=== PATIENT | female | born 1940 | race Caucasian/White ===

== ENCOUNTER 2016-09-30 06:54 | Outpatient (CLI) ==
--- NOTE | 2016-09-30 12:43 | MRI ---
EXAM: [facility] MR angiogram without contrast. HISTORY: Syncope and collapse. COMPARISON: Brain MRI 09/30/2016. TECHNIQUE: 3-D [id number] MR angiography was acquired through the [facility] without cont rast. FINDINGS: The right internal carotid artery has no flow-limiting stenoses from the distal cervical segment to the intracranial bifurcation. There is a partially visualized right posterior communicat ing artery which has a probable mild to moderate stenosis at its junction with the right posterior c erebral artery. The right anterior and middle cerebral arteries are unremarkable. There is a parti ally visualized tiny anterior communicating artery that may have a moderate stenosis at its junction with the right anterior cerebral artery. This may be accentuated by small size and slow flow. The left internal carotid artery has no flow-limiting stenoses from the distal cervical segment to t he intracranial bifurcation. There is a dominant left posterior communicating artery. The left mid dle cerebral artery M1 segment is normal to the bifurcation and there is a moderate stenosis at the origin and proximal 2 mm of the posterior left M2 branch. The left anterior M2 branch is normal. T he left anterior cerebral artery divides into two branches just beyond the anterior communicating ar bell and these course anteriorly and superiorly in the anterior interhemispheric fissure as two left anterior cerebral artery A2 branches. The left vertebral artery is dominant to the right. The right vertebral artery is small to the vert ebral basilar junction and becomes slightly smaller just beyond the origin of the right posterior in ferior cerebellar artery and then gradually enlarges to a small right vertebral artery to the verteb ral basilar junction. The left vertebral artery has no flow-limiting stenoses. The basilar artery has no hemodynamically significant stenoses and is ectatic. The left superior cerebellar artery is unremarkable. The right superior cerebellar artery arises from the proximal right posterior cerebra l artery. The right posterior cerebral artery has no flow-limiting stenoses. The left posterior ce rebral artery P1 segment is tortuous and has mild narrowing distally to its junction with the piece dye worker ior communicating artery. The left P2 segment is of normal caliber to its bifurcation into the medi al and lateral branches which are unremarkable. There are no aneurysms or vascular malformations in the [facility]. IMPRESSION: 1. No hemodynamically significant stenoses, aneurysms or vascular malformations are present in the major arteries of the [facility]. 2. Moderate stenosis origin and proximal 2 mm left middle cerebral artery posterior M2 branch.
--- NOTE | 2016-09-30 13:24 | MRI ---
EXAM: Brain MRI without contrast. HISTORY: Syncope and collapse. COMPARISON: [facility] MR angiogram 09/30/2016. TECHNIQUE: Multiplanar, multisequence MR images were acquired of the brain without contrast. FINDINGS: The midline structures are central and the craniocervical junction is unremarkable. The ventricles and sulci are normal in size and configuration. The brain parenchyma has no diffusion restriction to suggest acute hypoperfusion or infarction. 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 There is a minor sub-centimeter focus of faint FLAIR hyperintensity in the superior right parietal cortex (post cent ral gyrus) (axial image #19) suggestive of a remote peripheral cortical infarct. The corpus callosum is normal. The sella is expanded and the pituitary gland is small. There are no intraorbital masses. Hyperostosis frontalis interna is present. There is fatty infilt ration of the parotid glands bilaterally. Paranasal sinuses, middle ears and mastoids are unremarka ble. Flow voids are present in the major intracranial arteries and dural venous sinuses. IMPRESSION: 1. No intracranial mass, hemorrhage or acute cerebral infarct. 2. Mild to moderate chronic ischemic small vessel disease. 3. Small pituitary gland.
== END 2016-09-30 06:55 | disposition home or self-care (01) ==
LOC: RAD 06:54
PROVIDERS: ATTEND General Practice
DX: R55 Syncope and collapse (principal)

== ENCOUNTER 2016-12-29 11:30 | Outpatient (CLI) ==
--- NOTE | 2016-12-29 12:17 | US ---
EXAM: Ultrasound soft tissue neck HISTORY: Right neck swelling COMPARISON: None available TECHNIQUE: Martínez-scale and color Doppler images FINDINGS: Morphologically normal-appearing lymph node is seen in the soft tissues of the right neck in the area of concern measuring 0.4 cm short axis. No subcutaneous edema fluid collections identi fied. IMPRESSION: Morphologically normal-appearing lymph node in the right neck. Clinical follow-up recommended.
== END 2016-12-29 11:31 | disposition home or self-care (01) ==
LOC: RAD 11:30
PROVIDERS: ATTEND General Practice
DX: R22.1 Localized swelling, mass and lump, neck (principal); R30.0 Dysuria
CPT/HCPCS: 81001; 87086; 87186

== ENCOUNTER 2016-12-29 11:49 | Outpatient (CLI) ==
[2016-12-29 13:17] LABS: BILIRUBIN,URINE Negative (NEGATIVE); KETONES,URINE Negative (NEGATIVE); LEUKOCYTE ESTERASE ,URINE 1+ (NEGATIVE); NITRITE,URINE Positive (NEGATIVE); PH,URINE 6.5 (5-9); PROTEIN,URINE Negative (NEGATIVE); URINE, BLOOD Trace-lysed (NEGATIVE)
[2016-12-29 13:34] LABS: ADD URINE MICROSCOPIC YES
[2016-12-29 13:39] LABS: BACTERIA,URINE 1+ (NOT PRESENT)
== END 2016-12-29 11:50 | disposition home or self-care (01) ==
LOC: LAB 11:49
PROVIDERS: ATTEND General Practice
DX: R30.0 Dysuria (principal)
CPT/HCPCS: 81001; 87086; 87186

== ENCOUNTER 2017-03-19 08:38 | Outpatient (CLI) ==
[2017-03-19 12:48] LABS: BASOPHILS # (AUTO) 0.1 K/uL (0-0.2); BASOPHILS % (AUTO) 0.6 % (0.0-3.0); EOSINOPHILS # (AUTO) 0.4 K/ul (0.0-0.7); EOSINOPHILS % (AUTO) 4.4 % (0.0-7.0); HEMATOCRIT 37.6 % (37.0-47.0); HEMOGLOBIN 12.7 g/dl (12.0-16.0); IMMATURE GRANULOCYTE % (AUTO) 0.3 % (0.0-5.0); LYMPHOCYTES # (AUTO) 2.1 K/uL (0.60-3.4); LYMPHOCYTES % (AUTO) 26.2 (10.0-50.0); MEAN CORPUSCULAR HEMOGLOBIN 30.2 pg (27.0-31.0); MEAN CORPUSCULAR HGB CONC 33.8 (31.8-35.4); MEAN CORPUSCULAR VOLUME 89.5 fl (81.0-99.0); MONOCYTES # (AUTO) 0.6 K/uL (0.4-2.0); MONOCYTES % (AUTO) 7.9 (0-10); NEUTROPHILS # (AUTO) 4.8 K/ul (2.0-6.9); NEUTROPHILS % (AUTO) 60.6; PLATELET COUNT 243 10^3/uL (140-440); WHITE BLOOD COUNT 7.93 K/ul (4.6-10.2)
[2017-03-19 13:02] LABS: ALBUMIN 3.6 g/dL (3.4-5.0); ALBUMIN/GLOBULIN RATIO 1.2; ANION GAP 13.9; BILIRUBIN,TOTAL 1.45 mg/dL (0.00-1.20); BUN/CREATININE RATIO 9.3; CALCIUM 9.4 mg/dL (8.2-10.2); CHOL/HDL RATIO 2.8 (4.5-5.5); CREATININE 0.86 mg/dL (0.60-1.30); POTASSIUM 3.9 mmol/L (3.5-5.10); TOTAL PROTEIN 6.6 g/dL (5.8-8.1)
[2017-03-19 13:07] LABS: BILIRUBIN,URINE Negative (NEGATIVE); KETONES,URINE Negative (NEGATIVE); LEUKOCYTE ESTERASE ,URINE Trace (NEGATIVE); NITRITE,URINE Negative (NEGATIVE); PROTEIN,URINE Negative (NEGATIVE); URINE, BLOOD Trace-intact (NEGATIVE)
[2017-03-19 13:19] LABS: ADD URINE MICROSCOPIC YES
== END 2017-03-19 08:39 | disposition home or self-care (01) ==
LOC: LAB 08:38
PROVIDERS: ATTEND General Practice
DX: I10 Essential (primary) hypertension (principal); K21.9 Gastro-esophageal reflux disease without esophagitis; K22.70 Barrett's esophagus without dysplasia; R73.09 Other abnormal glucose; Z79.899 Other long term (current) drug therapy
CPT/HCPCS: 36415; 80053; 80061; 81001; 83036; 85025

== ENCOUNTER 2017-03-23 08:10 | Outpatient (CLI) | END 2017-03-23 08:11 | disposition home or self-care (01) | LOC: CAR 08:10 | PROVIDERS: ATTEND General Practice | DX: I49.9 Cardiac arrhythmia, unspecified (principal) | CPT/HCPCS: 93005; 93010 ==

== ENCOUNTER 2017-08-26 14:11 | Outpatient (CLI) | END 2017-08-26 14:12 | disposition home or self-care (01) | LOC: LAB 14:11 | PROVIDERS: ATTEND General Practice | DX: I10 Essential (primary) hypertension (principal); K21.9 Gastro-esophageal reflux disease without esophagitis; K22.70 Barrett's esophagus without dysplasia; Z79.899 Other long term (current) drug therapy | CPT/HCPCS: 36415; 80053; 80061; 81001; 85025 ==

== ENCOUNTER 2017-10-06 14:11 | Outpatient (CLI) | payer OTHER ==
--- NOTE | 2017-10-06 15:02 | CT ---
EXAM: CT THORAX HISTORY: Shortness of breath. TECHNIQUE: CT thorax without intravenous contrast. Multiplanar images presented. Coronal and sagit emerald re-formations. COMPARISON: None FINDINGS: Heart size is borderline enlarged. No pericardial effusion. Mild atherosclerotic disease. Limited evaluation of the mediastinal and hilar structures without the administration of intravenous contrast . There are probable scattered nonspecific small mediastinal and hilar lymph nodes present. There is a trace amount of left pleural effusion. There is biapical mild irregular pleuroparenchymal thickening which may be fibrotic in nature. A few scattered micro nodules are seen mainly on the rig ht. Largest nodule is seen in the posterior upper aspect of the right lower lobe at 4.8 mm. No obvio us consolidated pneumonia, active congestive heart failure, pneumothorax or pleural fluid. The bones reveal degenerative disc disease mainly at the lumbar level. Incidental note within the upp er abdomen of a 1.1 cm round nodular opacity posterior to the pancreatic tail which may be a pancreat ic mass or conceivably dilated focus of regional vasculature versus probably less likely an accessory spleen. Also a few small masses of the right renal cortex which may represent cysts. IMPRESSION: 1. No pneumonia or acute infiltrate. 2. Scattered pulmonary micro nodules largest at 4.8 mm. Probable biapical pleuroparenchymal scarring . 3. Borderline enlarged heart size with no active congestive heart failure. There is a tiny left pleu ral effusion. 4. Incidental note within the upper abdomen of a 1.1 cm round nodular opacity posterior to the pancr eatic tail which may be a pancreatic mass or conceivably dilated focus of regional vasculature versus probably less likely an accessory spleen. Consider follow-up CT abdomen and pelvis with and without intravenous contrast if possible.
== END 2017-10-06 14:12 | disposition home or self-care (01) ==
LOC: RAD 14:11
PROVIDERS: ATTEND General Practice
DX: R05 Cough (principal); R06.02 Shortness of breath; I10 Essential (primary) hypertension
CPT/HCPCS: 36415; 83880; 84443

== ENCOUNTER 2017-10-08 12:36 | Outpatient (CLI) | END 2017-10-08 12:37 | disposition home or self-care (01) | LOC: LAB 12:36 | PROVIDERS: ATTEND General Practice | DX: R79.89 Other specified abnormal findings of blood chemistry (principal); R06.02 Shortness of breath | CPT/HCPCS: 36415; 80069; 83880 ==

== ENCOUNTER 2017-10-12 07:39 | Outpatient (CLI) ==
--- NOTE | 2017-10-12 09:25 | CT ---
EXAM: CT abdomen with and without contrast. CT pelvis with and without contrast. HISTORY: Pancreatic mass. COMPARISON: Chest CT 10/06/2017. TECHNIQUE: Multiple axial images of the abdomen and pelvis were obtained prior to and following intr avenous administration of 100 mL of Omnipaque 350, low osmolar. Images reformatted in the coronal pl ane. FINDINGS: The lung bases are clear. Degenerative changes present throughout the spine. Gallbladder is absent. The liver, pancreas, spleen, and adrenal glands are unremarkable. There is f usiform dilatation of the splenic artery measuring approximately 1.7 x 1.1 x 1.2 cm, corresponding to the recent abnormality on chest CT. There is a right renal cortical scarring noted within an exophy tic right renal cyst measuring up to 2 cm diameter. Left kidney appears normal. The bowel is normal in course and caliber without evidence for obstruction or inflammatory process. The appendix is normal. Colonic diverticulosis noted. Atherosclerotic calcifications present. Smal l fat-containing umbilical hernia noted. Uterus demonstrates normal contour. Urinary bladder is unr emarkable. No free fluid, free air or lymphadenopathy identified. 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
== END 2017-10-12 07:40 | disposition home or self-care (01) ==
LOC: RAD 07:39
PROVIDERS: ATTEND General Practice
DX: K86.9 Disease of pancreas, unspecified (principal)

== ENCOUNTER 2017-11-03 08:37 | Outpatient (CLI) | END 2017-11-03 08:38 | disposition home or self-care (01) | LOC: CAR 08:37 | PROVIDERS: ATTEND General Practice | DX: R06.02 Shortness of breath (principal); R53.83 Other fatigue; R79.89 Other specified abnormal findings of blood chemistry; I72.8 Aneurysm of other specified arteries ==

== ENCOUNTER 2017-12-27 11:05 | Outpatient (CLI) | END 2017-12-27 11:06 | disposition home or self-care (01) | LOC: FCC-LAB 11:05 | PROVIDERS: ATTEND General Practice | DX: I10 Essential (primary) hypertension (principal); K22.70 Barrett's esophagus without dysplasia; K21.9 Gastro-esophageal reflux disease without esophagitis; Z79.899 Other long term (current) drug therapy | CPT/HCPCS: 36415; 80053; 80061; 81001; 85025 ==

== ENCOUNTER 2018-04-18 12:34 | Outpatient (CLI) | payer OTHER | END 2018-04-18 12:35 | disposition home or self-care (01) | LOC: FCC-LAB 12:34 | PROVIDERS: ATTEND General Practice | DX: I10 Essential (primary) hypertension (principal); K21.9 Gastro-esophageal reflux disease without esophagitis; Z79.899 Other long term (current) drug therapy | CPT/HCPCS: 36415; 80053; 80061; 81001; 85025 ==

== ENCOUNTER 2018-09-06 10:54 | Outpatient (CLI) | END 2018-09-06 10:55 | disposition home or self-care (01) | LOC: CAR 10:54 | PROVIDERS: ATTEND Psychiatry & Neurology Sleep Medicine | DX: G47.33 Obstructive sleep apnea (adult) (pediatric) (principal) ==

== ENCOUNTER 2018-09-28 13:52 | Outpatient (CLI) | payer OTHER | END 2018-09-28 13:53 | disposition home or self-care (01) | LOC: CAR 13:52 | PROVIDERS: ATTEND Psychiatry & Neurology Sleep Medicine | DX: G47.33 Obstructive sleep apnea (adult) (pediatric) (principal) | CPT/HCPCS: 95811 ==

== ENCOUNTER 2019-04-07 08:19 | Outpatient (CLI) | END 2019-04-07 08:20 | disposition home or self-care (01) | LOC: RHC-LAB 08:19 | PROVIDERS: ATTEND General Practice | DX: I48.91 Unspecified atrial fibrillation (principal); R06.02 Shortness of breath; G47.30 Sleep apnea, unspecified; I10 Essential (primary) hypertension; Z79.899 Other long term (current) drug therapy | CPT/HCPCS: 36415; 80053; 81001; 83880; 85025 ==